=== PATIENT | female | born 2000 | race Caucasian/White ===

== ENCOUNTER → 2019-02-17 | Emergency (ER) | payer OTHER ==
[~2019-02-17] VITALS: Ht 149.9 cm; Wt 47.6 kg
[~2019-02-17] MED LIST: MEDROLDOSEPACK PO; TRIAMCINOLONE A80 G2 TOP; ZOFRAN ODT4 MG PO
[2019-02-17 21:59] VITALS: BP 140/106
== END ==
LOC: M.ERS 21:28
DX: L23.7 Allergic contact dermatitis due to plants, except food (principal)

== ENCOUNTER 2019-02-25 23:09 | Emergency (ER) | payer OTHER ==
[~2019-02-25] VITALS: Ht 149.9 cm; Wt 49.0 kg
[2019-02-26 00:04] VITALS: BP 145/92
== END 2019-02-26 00:04 | disposition home or self-care (01) ==
LOC: M.ERS 23:09
DX: R21 Rash and other nonspecific skin eruption (principal)